=== PATIENT | male | born 1960 | race Caucasian/White ===

== ENCOUNTER 2018-05-02 16:40 | Inpatient (IN) | payer OTHER ==
[~2018-05-02] VITALS: Ht 165.1 cm; Wt 67.1 kg
[~2018-05-02 16:40] MED LIST: GLU500 PO; HYD25 PO; LOT10 PO; ZOC20 PO
[2018-05-02 16:43] VITALS: Ht 165.1 cm; Wt 67.1 kg
[2018-05-02 17:09] LABS: BASOPHIL % 0.5 % (0-2); PLATELET COUNT 143 x10^3mcL (130-400)
[2018-05-02 17:20] LABS: CALCIUM 8.9 mg/dL (8.5-10.1); CARBON DIOXIDE 27.8 mmol/L (21-32); CHLORIDE SERUM 103 mmol/L (98-107); GFR1 > 60 mL/min; GLUCOSE SERUM 237 mg/dL (74-106); POTASSIUM SERUM 3.4 mmol/L (3.5-5.1); SODIUM SERUM 138 mmol/L (136-145)
[2018-05-02 17:32] LABS: ALBUMIN 3.7 g/dL (3.4-5.0); ALKALINE PHOSPHATASE 70 U/L (46-116); ALT/SGPT 24 U/L (16-63); AST/SGOT 18 U/L (15-37); BILIRUBIN TOTAL 0.5 mg/dL (0.20-1.00); MAGNESIUM 1.8 mg/dL (1.8-2.4); T4(THYROXINE) 8.2 ug/dL (4.7-13.3); TOTAL PROTEIN, SERUM 6.9 g/dL (6.4-8.2)
[2018-05-02] MEDS ORDERED: JANUVIA100 M1 PO (17:36)
[2018-05-02] MEDS ORDERED: INVOKANA300 MG PO (17:37)
[2018-05-02] MEDS ORDERED: METFORMIN HCL850 MG PO (17:37)
[2018-05-02] MEDS ORDERED: TRE400 PO (17:37)
[2018-05-02] MEDS ORDERED: BENAZEPRIL HYDR20 M1 PO (17:38)
[2018-05-02] MEDS ORDERED: TOP50 PO (17:38)
[2018-05-02 19:14] LABS: PHOSPHOROUS 3.7 mg/dL (2.5-4.9)
[2018-05-02 19:19] VITALS: BP 108/76
[2018-05-02] MEDS ORDERED: LOPRESSOR50 M1 PO (19:33)
[2018-05-03 05:24] VITALS: BP 106/73
[2018-05-03 07:15] LABS: BASOPHIL % 0.3 % (0-2); PLATELET COUNT 141 x10^3mcL (130-400); RED CELL DISTRIBUTION WIDTH 13.3 % (11.5-14.5)
[2018-05-03 07:24] LABS: microscopic required? NO
[2018-05-03 07:39] LABS: CARBON DIOXIDE 28.4 mmol/L (21-32); CHLORIDE SERUM 108 mmol/L (98-107); CREATININE SERUM 0.9 mg/dL (0.7-1.3); GFR1 > 60 mL/min; GLUCOSE SERUM 116 mg/dL (74-106); MAGNESIUM 2.2 mg/dL (1.8-2.4); PHOSPHOROUS 3.7 mg/dL (2.5-4.9); POTASSIUM SERUM 4.4 mmol/L (3.5-5.1); SODIUM SERUM 143 mmol/L (136-145)
[2018-05-03 07:58] LABS: UA SPECIFIC GRAVITY 1.025 (1.005-1.035); urine erythrocyte NEGATIVE (NEGATIVE)
[2018-05-03 08:30] LABS: AMPHETAMINE QUAL UR NONE DETECTED
[2018-05-03 09:22] VITALS: BP 105/66
[2018-05-03 11:41] LABS: AMYLASE 62 U/L (25-115); LIPASE 243 IU/L (73-393)
[2018-05-03 12:47] VITALS: BP 125/82
[2018-05-03 18:01] VITALS: BP 108/74
[2018-05-03 20:46] VITALS: BP 116/80
[2018-05-04 05:27] VITALS: BP 94/69
[2018-05-04 05:43] VITALS: BP 102/61
[2018-05-04 06:59] LABS: CALCIUM 8.7 mg/dL (8.5-10.1); CARBON DIOXIDE 27.8 mmol/L (21-32); CHLORIDE SERUM 106 mmol/L (98-107); CREATININE SERUM 0.8 mg/dL (0.7-1.3); GFR1 > 60 mL/min; GLUCOSE SERUM 109 mg/dL (74-106); MAGNESIUM 1.9 mg/dL (1.8-2.4); PHOSPHOROUS 3.7 mg/dL (2.5-4.9); POTASSIUM SERUM 3.5 mmol/L (3.5-5.1); SODIUM SERUM 142 mmol/L (136-145)
[2018-05-04 07:27] LABS: BASOPHIL % 0.5 % (0-2)
[2018-05-04 07:29] LABS: PLATELET COUNT 129 x10^3mcL (130-400)
[2018-05-04 10:10] VITALS: BP 118/73
[2018-05-04 13:00] VITALS: BP 113/90
[2018-05-04] MEDS ORDERED: XARELTO20 M1 PO (15:04)
[2018-05-04] MEDS ORDERED: TRE400 PO (15:04)
[2018-05-04] MEDS ORDERED: METOPROLOL TART25 M1 PO (15:05)
[2018-05-04] MEDS ORDERED: ECO81 PO (15:06)
[2018-05-04] MEDS ORDERED: BG FS (15:06)
[2018-05-04] MEDS ORDERED: METFORMIN HCL850 MG PO (15:07)
[2018-05-04 15:34] VITALS: BP 113/90
== END 2018-05-04 16:46 | disposition home or self-care (01) | DRG 308 ==
LOC: ED 16:40 → DU 18:41
PROVIDERS: Emergency Medicine; Student in an Organized Health Care Education/Training Program
DX: I48.91 Unspecified atrial fibrillation (principal); N17.0 Acute kidney failure with tubular necrosis; E86.0 Dehydration; E11.9 Type 2 diabetes mellitus without complications; J84.10 Pulmonary fibrosis, unspecified; I10 Essential (primary) hypertension; E78.5 Hyperlipidemia, unspecified; E78.1 Pure hyperglyceridemia; I69.398 Other sequelae of cerebral infarction; H53.8 Other visual disturbances; Z87.891 Personal history of nicotine dependence
CPT/HCPCS: 82962; 83880; J7030; Q0092

== ENCOUNTER 2020-09-01 10:24 | Emergency (ER) | payer OTHER ==
[~2020-09-01 10:24] MED LIST changes: +BENAZEPRIL HYDR20 M1 PO; +BG FS; +ECO81 PO; +INVOKANA300 MG PO; +JANUVIA100 M1 PO; +LOPRESSOR50 M1 PO; +METFORMIN HCL850 MG PO; +METOPROLOL TART25 M1 PO; +TOP50 PO; +TRE400 PO; +XARELTO20 M1 PO
== END 2020-09-01 15:25 | disposition home or self-care (01) ==
LOC: ED 10:24
DX: R11.2 Nausea with vomiting, unspecified (principal); R42 Dizziness and giddiness; Z86.73 Personal history of transient ischemic attack (TIA), and cerebral infarction without residual deficits; E11.9 Type 2 diabetes mellitus without complications